=== PATIENT | female | born 1970 | race Caucasian/White ===

== ENCOUNTER 2018-11-17 06:11 | Day surgery (SDC) | payer BC ==
[~2018-11-17] VITALS: Ht 167.6 cm; Wt 98.1 kg
[~2018-11-17 06:11] MED LIST: FISH OIL 1,0001 EAC1; Hair, Skin & N1 EACH; METF500C; Prometrium200 MG
[2018-11-17] MEDS ORDERED: DHA100 MG PO (06:55)
[2018-11-17] MEDS ORDERED: VITAMIN D35000 UNI1 PO (06:55)
--- NOTE | 2018-11-17 08:55 | NUR ---
11/17/18 [address] BENAVIDES NOTIFIED OF HR 38, HE CONSULTED WITH THE PATIENT AND INFORMED HER THAT GOING INTO [facility] SHE HAD BIGEMINY. HE ALSO INFORMED HER THAT SHE IS IN AND OUT OF BIGEMINY NOW, BECAUSE SHE IS ASYMPTOMATIC AND YOUNG, HE RECOMMENDS THAT SHE TALK TO PCP ABOUT IT AND HAVE IT CHECKED OUT, HE ALSO TOLD HER TO GO TO THE ED IF SHE EXPERIENCES SOB OR CHEST PAIN. PT HAS NO QUESTIONS AND SAYS SHE WILL HAVE IT CHECKED OUT. SHE IS SENT WITH A PCP COMMUNICATION LETTER.
== END 2018-11-17 09:23 | disposition home or self-care (01) ==
LOC: ORSCSDS 06:11
PROVIDERS: Obstetrics & Gynecology
PROC: 0U5B8ZZ Destruction of Endometrium, Via Natural or Artificial Opening Endoscopic (ICD-10-PCS; principal; 2018-11-17 07:30)
DX: N92.1 Excessive and frequent menstruation with irregular cycle (principal); D50.0 Iron deficiency anemia secondary to blood loss (chronic); K21.9 Gastro-esophageal reflux disease without esophagitis
CPT/HCPCS: 88305; J0690; J1100; J2250; J2405; J2704; J3010; J7120

== ENCOUNTER 2022-01-19 00:36 | Emergency (ER) | payer BC ==
[~2022-01-19] VITALS: Ht 167.6 cm; Wt 95.2 kg
[~2022-01-19 00:36] MED LIST changes: +DHA100 MG PO; +VITAMIN D35000 UNI1 PO
== END 2022-01-19 01:44 | disposition home or self-care (01) ==
LOC: ER 00:36
DX: T23.212A Burn of second degree of left thumb (nail), initial encounter (principal); Z91.09 Other allergy status, other than to drugs and biological substances; X58.XXXA Exposure to other specified factors, initial encounter
CPT/HCPCS: 90714; A9270